=== PATIENT | male | born 1970 | race Caucasian/White ===

== ENCOUNTER 2019-07-30 11:23 | Emergency (ER) | payer BC ==
--- NOTE | 2019-07-30 13:40 | UC ---
Minor Trauma HPI - HPI Summary HPI Summary: 2 days ago he slipped and fell on ice landed on back since then has had severe pain in the region of the scapula now has pain in right pectorial muscle no sob no head injury no neck pain no abd pain every so often he feels like he is being tazed - History of Current Complaint Chief Complaint: UCUpperExtremity Stated Complaint: LEFT ARM INJURY S/P FALL Time Seen by Provider: 07/30/19 13:28 Hx Obtained From: Patient Onset/Duration: Sudden Onset Onset Of Pain: Immediate Severity Initially: Severe Severity Currently: Severe Pain Intensity: 9 Pain Scale Used: 0-10 Numeric Mechanism Of Injury: Fall From A Standing Position Aggravating Factor(s): Coughing, Deep Breaths, Movement - of left arm Alleviating Factor(s): Nothing Associated Signs And Symptoms: Negative: Loss Of Consciousness, Ecchymosis, Swelling Body - Head: 1 - tender here - Risk Factors Penetrating Injury Risk Factors: Negative - Allergies/Home Medications Allergies/Adverse Reactions: Allergies Allergy/AdvReac Type Severity Reaction Status Date / Time erythromycin base Allergy Nausea And Verified 07/30/19 13:15 Vomiting Home Medications: Home Medications Amlodipine Besylate [Norvasc] 5 mg PO DAILY 07/30/19 [History Confirmed 07/30/19 ] PMH/Surg Hx/FS Hx/Imm Hx Previously Healthy: Yes Cardiovascular History: Hypertension - Surgical History Surgical History: Yes Surgery Procedure, Year, and Place: right knee 2015 - Family History Known Family History: Positive: Hypertension - Social History Alcohol Use: Occasionally Substance Use Type: None Smoking Status (MU): Former Smoker When Did the Patient Quit Smoking/Using Tobacco: 2014 Household Exposure Type: Cigarettes Review of Systems All Other Systems Reviewed And Are Negative: Yes Constitutional: Positive: Negative Skin: Positive: Negative Eyes: Positive: Negative ENT: Positive: Negative Respiratory: Positive: Negative Cardiovascular: Positive: Other - left pectorialis pain Gastrointestinal: Positive: Negative Genitourinary: Positive: Negative Motor: Positive: Negative Neurovascular: Positive: Negative Musculoskeletal: Positive: Negative Neurological: Positive: Negative Psychological: Positive: Negative Physical Exam Triage Information Reviewed: Yes Appearance: Well-Nourished, Pain Distress Vital Signs: Initial Vital Signs Temp 98.9 F 07/30/19 13:07 Pulse 105 07/30/19 13:07 Resp 14 07/30/19 13:07 BP 155/98 07/30/19 13:07 Pulse Ox 96 07/30/19 13:07 Vital Signs Reviewed: Yes Eyes: Positive: Conjunctiva Clear, Other: - EOMI/PERRL ENT: Positive: Hearing grossly normal, Uvula midline. Negative: Nasal congestion, Nasal drainage, Trismus, Muffled voice, Hoarse voice Dental: Negative: Abscess @ Neck: Positive: Supple, Nontender, No Lymphadenopathy, Other: - trachea midline/ no sub cutaneous emph noted Respiratory: Positive: Lungs clear, No respiratory distress, No accessory muscle use. Negative: Chest non-tender - slight tenderness L sternal border, Respiratory distress, Decreased breath sounds, Accessory muscle use Cardiovascular: Positive: RRR, No Murmur, Tachycardia Abdominal Exam: Normal Abdomen Description: Positive: Nontender, No Organomegaly. Negative: CVA Tenderness (R), CVA Tenderness (L) Bowel Sounds: Positive: Present Musculoskeletal: Positive: ROM Intact, No Edema Neurological: Positive: Alert Psychological Exam: Normal Skin Exam: Normal - Additional Comments any movement of left arm causes severe pain in scapular region no rib pain below scapula or laterally abd non tender left pectoralis muscle tender hurts scapula so much his is unable to fully abduct left shoulder no spine tenderness BP equal both arms Diagnostics - Radiology No standard instances Radiology Interpretation Completed By: Radiologist Summary of Radiographic Findings: CXR and Left scapula: no fx noted /no mediastenal widening Minor Trauma Course/Dx - Course Course Of Treatment: I advised patient be transferred to a higher level of care. He has severe pain despite taking ibuprofen. His symptoms are worsening and I can't explain his symptoms of feeling tazed. His pain is out of proportion to that I would expect from a contusion alone and am concerned of potentially serious inter thoracic trauma. He voices understanding of my concerns declines transfer at this point. He states that if it worsens or new symptoms develop he will get seen in ER. His is off tomorrow and states that if he is not improved she can take him to the hospital - Differential Dx/Diagnosis Provider Diagnosis: Fall, Contusion, Muscle strain Discharge ED - Sign-Out/Discharge Documenting (check all that apply): Patient Departure All imaging exams completed and their final reports reviewed: Yes - Discharge Plan Condition: Stable Disposition: HOME Prescriptions: Cyclobenzaprine (NF) [Cyclobenzaprine 5 MG (NF)] 5 mg PO TID PRN #21 tab PRN Reason: Spasms - Back HYDROcodone/ACETAMIN 5-325 MG* [[place] 5-325 TAB*] 1 tab PO Q4H PRN #8 tab MDD 6 PRN Reason: Pain-Severe/Temp >/= 100.4 Patient Education Materials: Contusion in Adults (ED) Referrals: Emelia Garcia MD [Primary Care Provider] - Additional Instructions: If you change your mind or if symptoms worsen I suggest you go to the ER ( [facility]) As discussed I am concerned about the degree of pain you are having and think you should have a CT of the Chest I suggest you get recheck tomorrow if not improved TO ER for new or worsening symptoms continue ibruprofen - Billing Disposition and Condition Condition: STABLE Disposition: Home
[2019-07-30 13:58] VITALS: BP 140/108
[2019-07-30] MEDS ORDERED: HYDROcodone/ACETAMIN 5-325 MG* 1 TAB PO ONE (14:26)
== END 2019-07-30 14:37 | disposition home or self-care (01) ==
LOC: UCCORT 11:23
DX: S40.022A Contusion of left upper arm, initial encounter (principal); S46.912A Strain of unspecified muscle, fascia and tendon at shoulder and upper arm level, left arm, initial encounter; I10 Essential (primary) hypertension; Z88.1 Allergy status to other antibiotic agents; Z79.899 Other long term (current) drug therapy; Z87.891 Personal history of nicotine dependence; W00.0XXA Fall on same level due to ice and snow, initial encounter; Y92.9 Unspecified place or not applicable
CPT/HCPCS: 71046; 99202; G0463